=== PATIENT | male | born 1990 | race Caucasian/White ===

== ENCOUNTER 2016-08-23 14:39 | Emergency (ER) | payer OTHER ==
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
[2016-08-23 15:12] LABS: CHLORIDE,CL 108 mmol/L (98-110); SODIUM,NA 140 mmol/L (136-146)
--- NOTE | 2016-08-23 15:20 | CT ---
EXAMINATION: Non contrast CT head. Coronal and sagittal reformats. HISTORY: Pain FINDINGS: No evidence of intra or extra axial hemorrhage, mass, midline shift, hydrocephalus or edema. No hypoattenuation changes in the major vascular territories to suggest acute infarct. No abnormal intracranial calcifications are detected. No evidence of substantial vascular calcifica tions. Paranasal sinuses and mastoid air cells are well aerated without substantial findings. Pituitary fossa appears unremarkable. Calvarium is intact. No evidence of skull fracture. There is mild soft tissue swelling in the left o ccipital parietal subcutaneous tissues. IMPRESSION: No acute intracranial findings.
--- NOTE | 2016-08-23 15:28 | CT ---
EXAMINATION: CT cervical spine without contrast HISTORY: Pain COMPARISON: None TECHNIQUE: Axial CT images obtained through the cervical spine without contrast. Coronal and sagitta l reconstructions obtained. FINDINGS: Cervical spine: The cervical spinal alignment is normal. The vertebral body heights and disc spaces appear well-maintained. There is no fracture or dislocation noted within the cervical spine. Bone mi neralization is normal. The vertebral body heights and disc spaces appear well-maintained. Thoracic spine: The thoracic spinal alignment appears normal. The vertebral body heights and disc sp aces appear well-maintained. There is a nondisplaced fracture through the transverse process at T2 o n the right extending into the facet joint. Bone mineralization is normal. The paravertebral soft ti ssues appear normal. The lungs appear clear. No bulky cervical lymphadenopathy. The paravertebral soft tissues appear normal. IMPRESSION: 1. Unremarkable CT cervical spine. 2. Nondisplaced fracture through the transverse process on the right at T2.
--- NOTE | 2016-08-23 15:30 | CR ---
EXAMINATION: Right shoulder HISTORY: Pain COMPARISON: None TECHNIQUE: 3 views FINDINGS/IMPRESSION: There is no acute osseous abnormality, dislocation, or fracture identified. Bon e mineralization and joint spaces appear normal.
--- NOTE | 2016-08-23 15:31 | CR ---
EXAMINATION: Left tibia and fibula HISTORY: Trauma COMPARISON: None TECHNIQUE: 2 views FINDINGS/IMPRESSION: There is no acute osseous abnormality, dislocation, or fracture identified. Bon e mineralization appears normal.
--- NOTE | 2016-08-23 16:40 | CR ---
EXAMINATION: Left foot HISTORY: Pain COMPARISON: None TECHNIQUE: 2 views FINDINGS/IMPRESSION: There is no acute osseous abnormality, dislocation, or fracture identified. Bon e mineralization and joint spaces appear preserved. Mild soft tissue swelling is noted along the med ial aspect of the foot.
[2016-08-23 17:33] VITALS: BP 109/62
== END 2016-08-23 17:25 | disposition home or self-care (01) ==
LOC: MW.ED 14:39
DX: S22.088A Other fracture of T11-T12 vertebra, initial encounter for closed fracture (principal); W22.8XXA Striking against or struck by other objects, initial encounter; Y92.65 Oil rig as the place of occurrence of the external cause; Y99.0 Civilian activity done for income or pay
CPT/HCPCS: 36415; 70450; 72125; 72128; 73030; 73590; 73620; 80053; 81003; 85025; 85610; 85730; 86850; 86900; 86901; 99284; G0390; G0478; G0480; 80305